=== PATIENT | female | born 1965 | race American Indian/Alaskan Native ===

== ENCOUNTER 2017-12-28 19:10 | Emergency (ER) | payer OTHER ==
[2017-12-28 20:12] LABS: Basophils % (Auto) 0.5 % (0.0-1.8); Eosinophils # (Auto) 0.1 K/mm3 (0.0-0.4); Eosinophils % (Auto) 1.7 % (0.0-4.3); Hematocrit 43.9 % (30.3-42.9); Hemoglobin 14.3 gm/dl (10.1-14.3); Lymphocytes # (Auto) 3.7 K/mm3 (1.2-5.4); Lymphocytes % (Auto) 45.4 % (13.4-35.0); Mean Corpuscular HGB Conc 33 % (30-34); Mean Corpuscular Hemoglobin 30 pg (28-32); Mean Corpuscular Volume 91 fl (79-97); Monocytes # (Auto) 0.4 K/mm3 (0.0-0.8); Monocytes % (Auto) 4.5 % (0.0-7.3); Platelet Count 286 K/mm3 (140-440); Red Blood Count 4.82 M/mm3 (3.65-5.03); Red Cell Distribution Width 13.8 % (13.2-15.2)
[2017-12-28 20:19] LABS: Bacteria,Urine 1+ /HPF (Negative); Bilirubin,Urine NEG (Negative); Blood,Urine MOD (Negative); Color,Urine Yellow (Yellow); Mucus,Urine FEW /HPF; Protein,Urine <15 mg/dL mg/dL (Negative); Urobilinogen,Urine < 2.0 mg/dL (<2.0)
[2017-12-28 20:22] LABS: INR 0.84 (0.87-1.13); Partial Thromboplastin Time 27.8 Sec. (24.2-36.6)
[2017-12-28 20:29] LABS: Albumin 4.2 g/dL (3.9-5)
[2017-12-29] MEDS ORDERED: MORPHINE IV ONE (00:04)
[2017-12-29] MEDS ORDERED: NACL 0.9% 1000 ML 1,000 ML IV ONE (00:04)
[2017-12-29] MEDS ORDERED: ZOFRAN IV ONE (00:04)
[2017-12-29 02:19] VITALS: BP 156/87
--- NOTE | 2017-12-29 03:07 | Cat Scan Report ---
FINAL REPORT EXAM: CT A/P w Contrast CLINICAL INDICATIONS: LLQ PAIN, HEMATOCHEZIA FINDINGS: Contrast enhanced CT of the abdomen and pelvis was performed. The heart is normal in size. There is right middle lobe linear scar versus atelectasis. There is a right middle right lower lobe pulmonary nodule, image 27, 0.2 cm. Abdomen: No suspect focal hepatic lesion is seen. The spleen is normal in size. There is bilateral adrenal thickening without discrete adrenal mass. No focal pancreatic lesion is seen. There has been a cholecystectomy. There is no renal or ureteral calculus. There is aortic atherosclerotic change without aneurysmal dilation of the aorta. There is fold thickening and wall thickening of multiple jejunal loops, likely gastroenteritis. Pelvis: There is a normal appendix. There is no evidence of diverticulitis. There is no adnexal mass. The urinary bladder is within normal limits. There is no free air. IMPRESSION: ABDOMEN: JEJUNAL WALL THICKENING LIKELY GASTROENTERITIS PELVIS: NORMAL APPENDIX
--- NOTE | 2017-12-29 03:36 | Emergency Department Report ---
ED Abdominal Pain HPI - General Chief Complaint: GI Bleed Stated Complaint: BLOOD IN BOWEL Time Seen by Provider: 12/28/17 23:51 Source: patient Mode of arrival: Ambulatory Limitations: No Limitations - History of Present Illness Initial Comments: Ms. Cantu is a 52-year-old female who presents with left lower quadrant pain and bright red blood per rectum. She is a healthy female with history of emphysema and multiple nodules. Her [place] physician obtained ultrasound without acute process. She is well aware of the lung nodules. She has had left lower quadrant achy abdominal pain for several weeks. Today she had loose stool with BRBPR. No previous history for hemorrhoids. Denies vomiting. She denies fever. mild pain. MD Complaint: abdominal pain -: Gradual, week(s) (3) Location: LLQ Radiation: none Migration to: no migration Severity: mild Severity scale (0 -10): 5 Quality: cramping Consistency: constant Improves With: nothing Worsens With: nothing Associated Symptoms: diarrhea - Related Data Previous Rx's Medication Instructions Recorded Last Taken Type Ciprofloxacin HCl [Cipro] 500 mg PO BID 3 Days #6 tablet 12/29/17 Unknown Rx Hydrocortisone [Anusol-Hc] 1 applic RC DAILY 7 Days #30 12/29/17 Unknown Rx cream..g. Allergies Allergy/AdvReac Type Severity Reaction Status Date / Time codeine Allergy Itching Verified 12/28/17 19:21 Penicillins Allergy Rash Verified 12/28/17 19:21 ED Review of Systems ROS: Stated complaint: BLOOD IN BOWEL Other details as noted in HPI Comment: All other systems reviewed and negative Constitutional: denies: fever, malaise Respiratory: denies: cough Cardiovascular: denies: chest pain ED Past Medical Hx - Past Medical History Previous Medical History?: Yes Additional medical history: empysema, nodules in lungs - Surgical History Past Surgical History?: Yes Hx Cholecystectomy: Yes - Social History Smoking Status: Current Every Day Smoker Substance Use Type: Alcohol - Medications Home Medications: Home Medications Medication Instructions Recorded Confirmed Last Taken Type Ciprofloxacin HCl [Cipro] 500 mg PO BID 3 Days #6 tablet 12/29/17 Unknown Rx Hydrocortisone [Anusol-Hc] 1 applic RC DAILY 7 Days #30 12/29/17 Unknown Rx cream..g. ED Physical Exam - General Limitations: No Limitations General appearance: alert, in no apparent distress - Head Head exam: Present: atraumatic, normocephalic - Eye Eye exam: Present: normal appearance - ENT ENT exam: Present: mucous membranes moist - Neck Neck exam: Present: normal inspection - Respiratory Respiratory exam: Present: normal lung sounds bilaterally. Absent: respiratory distress, wheezes, rales, rhonchi - Cardiovascular Cardiovascular Exam: Present: regular rate, normal rhythm, normal heart sounds. Absent: systolic murmur, diastolic murmur, rubs, gallop - GI/Abdominal GI/Abdominal exam: Present: soft, normal bowel sounds. Absent: distended, tenderness, guarding, rebound - Extremities Exam Extremities exam: Present: normal inspection - Back Exam Back exam: Present: normal inspection - Neurological Exam Neurological exam: Present: alert, oriented X3 - Psychiatric Psychiatric exam: Present: normal affect, normal mood - Skin Skin exam: Present: warm, dry, intact, normal color. Absent: rash ED Course Vital Signs 12/28/17 12/29/17 19:15 00:52 Temperature 98.4 F Pulse Rate 90 98 H Respiratory 18 18 Rate Blood Pressure 132/87 156/87 O2 Sat by Pulse 95 Oximetry ED Medical Decision Making - Lab Data Result diagrams: 12/28/17 19:53 12/28/17 19:53 Laboratory Results - last 24 hr 12/28/17 12/28/17 12/28/17 19:45 19:53 19:53 WBC 8.1 RBC 4.82 Hgb 14.3 Hct 43.9 H MCV 91 MCH 30 MCHC 33 RDW 13.8 Plt Count 286 Lymph % (Auto) 45.4 H Vance % (Auto) 4.5 Eos % (Auto) 1.7 Baso % (Auto) 0.5 Lymph # 3.7 Vance # 0.4 Eos # 0.1 Baso # 0.0 Seg Neutrophils % 47.9 Seg Neutrophils # 3.9 PT 11.9 L INR 0.84 L APTT 27.8 Sodium Potassium Chloride Carbon Dioxide Anion Gap BUN Creatinine Estimated GFR BUN/Creatinine Ratio Glucose Calcium Total Bilirubin AST ALT Alkaline Phosphatase Total Protein Albumin Albumin/Globulin Ratio Lipase Urine Color Yellow Urine Turbidity Clear Urine pH 6.0 Ur Specific [place] 1.005 Urine Protein <15 mg/dl Urine Glucose (UA) Neg Urine Ketones Neg Urine Blood Mod Urine Nitrite Neg Urine Bilirubin Neg Urine Urobilinogen < 2.0 Ur Leukocyte Esterase Lg Urine WBC (Auto) 47.0 H Urine RBC (Auto) 3.0 U Epithel Cells (Auto) 1.0 Urine Bacteria (Auto) 1+ Urine Mucus Few Blood Type Antibody Screen 12/28/17 12/28/17 19:53 19:57 WBC RBC Hgb Hct MCV MCH MCHC RDW Plt Count Lymph % (Auto) Vance % (Auto) Eos % (Auto) Baso % (Auto) Lymph # Vance # Eos # Baso # Seg Neutrophils % Seg Neutrophils # PT INR APTT Sodium 140 Potassium 3.9 Chloride 101.7 Carbon Dioxide 26 Anion Gap 16 BUN 8 Creatinine 1.0 Estimated GFR 58 BUN/Creatinine Ratio 8 Glucose 109 H Calcium 9.0 Total Bilirubin 0.60 AST 13 ALT 12 Alkaline Phosphatase 110 Total Protein 7.1 Albumin 4.2 Albumin/Globulin Ratio 1.4 Lipase 89 H Urine Color Urine Turbidity Urine pH Ur Specific [place] Urine Protein Urine Glucose (UA) Urine Ketones Urine Blood Urine Nitrite Urine Bilirubin Urine Urobilinogen Ur Leukocyte Esterase Urine WBC (Auto) Urine RBC (Auto) U Epithel Cells (Auto) Urine Bacteria (Auto) Urine Mucus Blood Type O POSITIVE Antibody Screen Negative Vital Signs - 8 hr 12/29/17 00:52 Pulse Rate 98 H Respiratory 18 Rate Blood Pressure 156/87 Laboratory Results - last 24 hr 12/28/17 12/28/17 12/28/17 19:45 19:53 19:53 WBC 8.1 RBC 4.82 Hgb 14.3 Hct 43.9 H MCV 91 MCH 30 MCHC 33 RDW 13.8 Plt Count 286 Lymph % (Auto) 45.4 H Vance % (Auto) 4.5 Eos % (Auto) 1.7 Baso % (Auto) 0.5 Lymph # 3.7 Vance # 0.4 Eos # 0.1 Baso # 0.0 Seg Neutrophils % 47.9 Seg Neutrophils # 3.9 PT 11.9 L INR 0.84 L APTT 27.8 Sodium Potassium Chloride Carbon Dioxide Anion Gap BUN Creatinine Estimated GFR BUN/Creatinine Ratio Glucose Calcium Total Bilirubin AST ALT Alkaline Phosphatase Total Protein Albumin Albumin/Globulin Ratio Lipase Urine Color Yellow Urine Turbidity Clear Urine pH 6.0 Ur Specific [place] 1.005 Urine Protein <15 mg/dl Urine Glucose (UA) Neg Urine Ketones Neg Urine Blood Mod Urine Nitrite Neg Urine Bilirubin Neg Urine Urobilinogen < 2.0 Ur Leukocyte Esterase Lg Urine WBC (Auto) 47.0 H Urine RBC (Auto) 3.0 U Epithel Cells (Auto) 1.0 Urine Bacteria (Auto) 1+ Urine Mucus Few Blood Type Antibody Screen 12/28/17 12/28/17 19:53 19:57 WBC RBC Hgb Hct MCV MCH MCHC RDW Plt Count Lymph % (Auto) Vance % (Auto) Eos % (Auto) Baso % (Auto) Lymph # Vance # Eos # Baso # Seg Neutrophils % Seg Neutrophils # PT INR APTT Sodium 140 Potassium 3.9 Chloride 101.7 Carbon Dioxide 26 Anion Gap 16 BUN 8 Creatinine 1.0 Estimated GFR 58 BUN/Creatinine Ratio 8 Glucose 109 H Calcium 9.0 Total Bilirubin 0.60 AST 13 ALT 12 Alkaline Phosphatase 110 Total Protein 7.1 Albumin 4.2 Albumin/Globulin Ratio 1.4 Lipase 89 H Urine Color Urine Turbidity Urine pH Ur Specific [place] Urine Protein Urine Glucose (UA) Urine Ketones Urine Blood Urine Nitrite Urine Bilirubin Urine Urobilinogen Ur Leukocyte Esterase Urine WBC (Auto) Urine RBC (Auto) U Epithel Cells (Auto) Urine Bacteria (Auto) Urine Mucus Blood Type O POSITIVE Antibody Screen Negative Vital Signs - 24 hr 12/28/17 12/29/17 19:15 00:52 Temperature 98.4 F Pulse Rate 90 98 H Respiratory 18 18 Rate Blood Pressure 132/87 156/87 O2 Sat by Pulse 95 Oximetry - Medical Decision Making Mrs. Paniagua presents with abdominal pain and rectal bleeding. No evidence of GI bleed currently. She does have rectal hemorrhoids. I prescribed Anusol ointment. CT scan revealed signs of gastritis. I prescribed 3 days of ciprofloxacin. Patient given education and reassurance. Critical care attestation.: If time is entered above; I have spent that time in minutes in the direct care of this critically ill patient, excluding procedure time. ED Disposition Clinical Impression: Hemorrhoids, Enteritis, Rectal bleeding Disposition: -01 TO HOME OR SELFCARE Is pt being admited?: No Does the pt Need Aspirin: No Condition: Stable Instructions: Rectal Bleeding (ED), Hemorrhoids (ED), Infectious Colitis (ED) Prescriptions: Ciprofloxacin HCl [Cipro] 500 mg PO BID 3 Days #6 tablet Hydrocortisone [Anusol-Hc] 1 applic RC DAILY 7 Days #30 cream..g. Referrals: HILDA KAUR [Other] - 3-5 Days Forms: Accompanied Note, Work/School Release Form(ED)
== END 2017-12-29 04:30 | disposition home or self-care (01) ==
LOC: ED 19:10
DX: K52.9 Noninfective gastroenteritis and colitis, unspecified (principal); K64.9 Unspecified hemorrhoids; F17.200 Nicotine dependence, unspecified, uncomplicated; Z88.6 Allergy status to analgesic agent; Z88.0 Allergy status to penicillin
CPT/HCPCS: 36415; 74177; 80053; 81001; 83690; 85025; 85610; 85730; 86850; 86900; 86901; 96361; 96374; 96375; 99284; J2270; J2405; J7030; Q9967